=== PATIENT | female | born 1975 | race African-American/Black ===

== ENCOUNTER 2016-06-22 20:58 | Emergency (ER) | payer MEDICAID ==
[~2016-06-22] VITALS: Ht 180.3 cm; Wt 108.9 kg
[2016-06-22] MEDS ORDERED: IBUPROFEN600 MG ORAL (21:13)
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
[2016-06-22 21:15] VITALS: BP 131/81
[2016-06-22] MEDS ORDERED: NORCO 5-325 TA1 EACH ORAL (22:22)
[2016-06-22 22:55] VITALS: BP 129/79
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
== END 2016-06-22 22:55 | disposition home or self-care (01) ==
LOC: EMR 21:19
DX: S09.90XA Unspecified injury of head, initial encounter (principal); S83.91XA Sprain of unspecified site of right knee, initial encounter; V43.62XA Car passenger injured in collision with other type car in traffic accident, initial encounter; Y93.9 Activity, unspecified; Y92.410 Unspecified street and highway as the place of occurrence of the external cause
CPT/HCPCS: 70450; 99284

== ENCOUNTER 2018-12-29 08:17 | Emergency (ER) | payer MEDICAID ==
[~2018-12-29] VITALS: Ht 180.3 cm; Wt 113.4 kg
[~2018-12-29 08:17] MED LIST: IBUPROFEN600 MG ORAL; NORCO 5-325 TA1 EACH ORAL
[2018-12-29 08:23] VITALS: BP 142/81
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
--- NOTE | 2018-12-29 10:00 | Diagnostic Imaging Report ---
Indication: Headache Technique: Contiguous 5 mm thick transaxial imaging of the head obtained in a Siemens Sensation [address] scanner. Soft tissue and bone windows generated. Automatic Exposure Control was utilized. Total Dose length Product (DLP): 1363.[address] Dose Index Volume (CTDIvol): 62.7 mGy Comparison: none Findings: The size and configuration of the cortical sulci, basal cisterns, and ventricles are within normal limits for age. There is no mass effect, midline shift, or edema identified. There is no evidence of acute hemorrhage or abnormal intra-axial or extra-axial fluid collections. The bones and soft tissues are unremarkable. Impression: No mass effect, edema or acute bleed. The CT scanner at [facility] is accredited by the [employer] and the scans are performed using dose optimization techniques as appropriate to a performed exam including Automatic Exposure control.
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
[2018-12-29] MEDS ORDERED: IBUPROFEN600 MG ORAL (10:16)
[2018-12-29] MEDS ORDERED: CYCLOBENZAPRINE10 MG ORAL (10:16)
[2018-12-29 10:25] VITALS: BP 138/79
--- NOTE | 2018-12-29 10:25 | NUR ---
ER DISCHARGE NOTE: Patient is cleared to be discharged per ERMD, pt is aox4, on room air, with stable vital signs. pt was given dc and prescription instructions, pt was able to verbalize understanding, pt id band removed. pt is able to ambulate with steady gait. pt took all belongings.
--- NOTE | 2018-12-29 11:10 | Diagnostic Imaging Report ---
Indication: Chest pain Comparison: None A single view chest radiograph was obtained. Findings: Cardiomediastinal appearance is within normal limits for age. The lungs are clear. Pulmonary vascularity is appropriate. The diaphragmatic contour is smooth and costophrenic angles are sharp. No pleural effusions are identified. The bones are unremarkable. Impression: No acute findings
== END 2018-12-29 10:25 | disposition home or self-care (01) ==
LOC: EMR 08:48
DX: S16.1XXA Strain of muscle, fascia and tendon at neck level, initial encounter (principal); S20.219A Contusion of unspecified front wall of thorax, initial encounter; S39.92XA Unspecified injury of lower back, initial encounter; Z98.51 Tubal ligation status; F17.200 Nicotine dependence, unspecified, uncomplicated; V43.52XA Car driver injured in collision with other type car in traffic accident, initial encounter; Y92.410 Unspecified street and highway as the place of occurrence of the external cause
CPT/HCPCS: 70450; 71045; 72125; Z7502; 99284

== ENCOUNTER 2019-02-01 08:10 | Emergency (ER) | payer MEDICAID ==
[~2019-02-01] VITALS: Ht 180.3 cm; Wt 108.9 kg
[~2019-02-01 08:10] MED LIST changes: +CYCLOBENZAPRINE10 MG ORAL
[2019-02-01 08:26] VITALS: BP 146/78
--- NOTE | 2019-02-01 08:26 | NUR ---
ED Nurse Note: Patient walked in to ER c/o 9/10 stabbing pain on right ear. Denies any discharges and nor difficulty hearing. As per patient, she has cold x1 week. Afebrile. VSS.
--- NOTE | 2019-02-01 08:32 | NUR ---
ED Nurse Note: ERMD at bedside.
[2019-02-01] MEDS ORDERED: AUGMENTIN 875-1 EAC1 ORAL (08:36)
--- NOTE | 2019-02-01 08:37 | Emergency Room Report ---
History of Present Illness General Chief Complaint: Earache Source: Patient Present Illness HPI 43-year-old female history of tubal ligation presents with right earache, started this morning, no aggravating leaving factors severity is moderate, constant no fevers no chills, patient presents for evaluation. Allergies: Coded Allergies: No Known Allergies (Unverified , 06/22/16) Patient History Past Medical History: see triage record Last Menstrual Period: 01/23/19 Now: No Reviewed Nursing Documentation: PMH: Agreed; PSxH: Agreed Nursing Documentation-PMH Past Medical History: No Stated History Review of Systems All Other Systems: negative except mentioned in HPI Physical Exam Vital Signs Date Time Temp Pulse Resp B/P (MAP) Pulse Ox O2 Delivery O2 Flow Rate FiO2 02/01/19 08:21 98.4 77 16 146/78 (100) 98 Room Air General Appearance: well appearing, no apparent distress Head: normocephalic, atraumatic Eyes: bilateral eye PERRL, bilateral eye EOMI ENT: hearing grossly normal, normal voice, moist mucus membranes, other - Right TM, red, inflamed, left TM normal Neck: full range of motion, supple Respiratory: no respiratory distress, speaking full sentences Neurologic: alert, normal gait Psychiatric: mood/affect normal Skin: no rash Medical Decision Making Diagnostic Impression: Primary Impression: Otitis media Qualified Codes: H65.191 - Other acute nonsuppurative otitis media, right ear ER Course 43-year-old female presents with otitis media of the right ear will provide patient with pain relief, antibiotics disposition home with return precautions Last Vital Signs Date Time Temp Pulse Resp B/P (MAP) Pulse Ox O2 Delivery O2 Flow Rate FiO2 02/01/19 08:26 98.4 77 16 146/78 98 Room Air Disposition: HOME, SELF-CARE Condition: Stable Scripts Amoxicillin/Potassium Clav 875-125* (AUGMENTIN 875-125 TABLET*) 1 Each Tablet 1 TAB ORAL TWICE A DAY, #14 TAB Prov: Adams Martin MD 02/01/19 Referrals: [facility] Departure Forms: Return to Work Return to Work Date: Feb 02, 2019 Patient Instructions: Otitis Media, Adult, [id number] Additional Instructions: The patient was provided with discharge instructions, notified to follow-up with a primary care doctor and or specialist in the next 24-48 hours, and to return to the ED if they have worsening of their symptoms. Please note that this report is being documented using Telepath technology. This can lead to erroneous entry secondary to incorrect interpretation by the dictating instrument. Adams Martin MD Feb 01, 2019 08:37
[2019-02-01 08:42] VITALS: BP 146/78
--- NOTE | 2019-02-01 08:42 | NUR ---
ED Nurse Note: Pt cleared by ERMD for discharge. DC instructions/prescription was given and explained to pt and verbalized understanding of teachings. All medical deviecs such as ID band removed. Pt is AAO x4, ambulatory and left with all personal belongings.
[2019-02-01] MEDS ORDERED: Naproxen 500mg tab ORAL ONE (08:45)
[2019-02-01] MEDS ORDERED: Augmentin 875mg Tab ORAL ONE (08:45)
[2019-02-01] MEDS ORDERED: Acetaminophen 500mg (ES) tab ORAL ONE (08:45)
== END 2019-02-01 08:42 | disposition home or self-care (01) ==
LOC: EMR 08:35
DX: H65.191 Other acute nonsuppurative otitis media, right ear (principal)
CPT/HCPCS: 99282